=== PATIENT | female | born 1940 | race Caucasian/White ===

== ENCOUNTER 2023-09-06 06:52 | Day surgery (SDC) | payer OTHER ==
[~2023-09-06] VITALS: Ht 152.4 cm; Wt 65.8 kg
[2023-09-06] MEDS ORDERED: SIMETHICONE 40 MG/0.6 ML ML ONE (07:04)
[2023-09-06] MEDS ORDERED: fentaNYL CITRATE/PF 100 MCG/2 ML AMP ONE (07:04)
[2023-09-06] MEDS ORDERED: MIDAZOLAM HCL 5 MG/5 ML VIAL ONE ×2 (07:05→08:57)
[2023-09-06] MEDS ORDERED: DIPHENHYDRAMINE INJ 50 MG/ML VIAL ONE (08:32)
[2023-09-06 12:17] VITALS: BP_SYST 145; PULSE 96; RESP 18; TEMP 97.9; O2SAT 97
== END 2023-09-06 10:51 | disposition home or self-care (01) ==
LOC: SDS 06:52 → SMU 06:54 → SDS 10:51
PROVIDERS: ATTEND Internal Medicine
DX: R19.7 Diarrhea, unspecified (principal); D12.2 Benign neoplasm of ascending colon; D12.4 Benign neoplasm of descending colon; K64.8 Other hemorrhoids; I10 Essential (primary) hypertension; E11.9 Type 2 diabetes mellitus without complications; J45.909 Unspecified asthma, uncomplicated; K21.9 Gastro-esophageal reflux disease without esophagitis; M81.0 Age-related osteoporosis without current pathological fracture; Z91.040 Latex allergy status; Z90.710 Acquired absence of both cervix and uterus; Z98.890 Other specified postprocedural states; Z79.899 Other long term (current) drug therapy; Z80.0 Family history of malignant neoplasm of digestive organs
CPT/HCPCS: 45380; 45385; 99152; 88305; 99153; G0378; J1200; J2250; J3010